=== PATIENT | male | born 1950 | race Native Hawaiian/Other Pacific Islander ===

== ENCOUNTER 2016-04-04 06:26 | Emergency (ER) | payer OTHER ==
[~2016-04-04] VITALS: Ht 165.1 cm; Wt 54.4 kg
[~2016-04-04 06:26] MED LIST: ACID CONTROL150 MG PO; ALBUTEROL0.083 % IN; ALBUTEROL2 MG/5 ML PO; ALPR0.5T24 PO; AMLO10TA PO; AMOX875T8 PO; ASA LO-DOSE81 MG PO; ASPIRIN LOW STR81 MG PO; BYSTOLIC5 MG PO; CEFD300C2 PO; CIPRODEX1 ML OT; CLARITIN10 MG PO; CLINDAMYCIN150 MG PO; FLUTMIS6 INH; FORTAMET500 MG OR; GABA100C2 PO; HYDACET7.5 PO; HYDR25TA60 PO; KETO10TA34 PO; LISI20TA11 PO; LORA10TA3 PO; LORTAB1 TA1 PO; LORTAB1 TAB PO; MEDROL DOSEPAK4 MG OR; MIRAPEX1 MG PO; NEXIUM40 M1 PO; NITR0.4S SL; PERIDEX0.12 % PO; PRAVACHOL20 MG PO; SIMV40TA57 PO; ZOFRAN8 MG OR
[2016-04-04 08:20] VITALS: BP 158/72; TEMP 98.1
== END 2016-04-04 08:21 | disposition home or self-care (01) ==
LOC: ED 06:26
DX: R10.2 Pelvic and perineal pain (principal); C19 Malignant neoplasm of rectosigmoid junction
CPT/HCPCS: 96372; 99282; J1885

== ENCOUNTER 2016-04-15 23:01 | Emergency (ER) | payer OTHER ==
[~2016-04-15] VITALS: Ht 165.1 cm; Wt 59.0 kg
[2016-04-16 00:14] VITALS: BP 135/91; TEMP 98.4
== END 2016-04-15 23:50 | disposition home or self-care (01) ==
LOC: ED 23:01
DX: M54.89 Other dorsalgia (principal); G89.29 Other chronic pain; C20 Malignant neoplasm of rectum
CPT/HCPCS: 96372; 99283; J1885

== ENCOUNTER 2016-05-04 16:04 | Emergency (ER) | payer OTHER ==
[~2016-05-04] VITALS: Ht 165.1 cm; Wt 54.4 kg
[2016-05-04 19:20] VITALS: BP 140/88; TEMP 97.6
== END 2016-05-04 19:20 | disposition home or self-care (01) ==
LOC: ED 16:04
DX: S00.83XA Contusion of other part of head, initial encounter (principal); S02.19XA Other fracture of base of skull, initial encounter for closed fracture; Y04.2XXA Assault by strike against or bumped into by another person, initial encounter; Y92.098 Other place in other non-institutional residence as the place of occurrence of the external cause
CPT/HCPCS: 99283

== ENCOUNTER 2017-04-09 16:22 | Emergency (ER) | payer OTHER ==
[~2017-04-09] VITALS: Ht 165.1 cm; Wt 59.0 kg
[2017-04-09 16:48] VITALS: BP 174/90; TEMP 97.6
== END 2017-04-09 16:50 | disposition home or self-care (01) ==
LOC: ED 16:22
DX: R10.32 Left lower quadrant pain (principal); R10.31 Right lower quadrant pain; C18.9 Malignant neoplasm of colon, unspecified
CPT/HCPCS: 96372; 99282; J1885

== ENCOUNTER 2018-12-11 11:11 | Emergency (ER) | payer OTHER ==
[~2018-12-11] VITALS: Ht 165.1 cm; Wt 54.4 kg
[2018-12-11 11:15] VITALS: TEMP 99
[2018-12-11] MEDS ORDERED: ASPIRIN 81 LOW81 MG PO (11:24)
[2018-12-11 11:42] LABS: PLATELET COUNT 259 K/uL (142-355)
[2018-12-11 11:51] LABS: POTASSIUM 2.9 mmol/L (3.6-5.2)
[2018-12-11 12:15] VITALS: BP 150/83
== END 2018-12-11 12:27 | disposition home or self-care (01) ==
LOC: ED 11:11
PROVIDERS: Emergency Medicine
DX: R10.84 Generalized abdominal pain (principal); M79.605 Pain in left leg; M79.604 Pain in right leg; M25.552 Pain in left hip; M25.551 Pain in right hip
CPT/HCPCS: 80053; 81000; 85027; 96372; 99283; J1885

== ENCOUNTER 2020-07-06 23:35 | Emergency (ER) | payer OTHER ==
[~2020-07-06] VITALS: Ht 165.1 cm; Wt 59.0 kg
[~2020-07-06 23:35] MED LIST changes: +ASPIRIN 81 LOW81 MG PO
[2020-07-07 01:17] VITALS: BP 149/92; TEMP 98.4
== END 2020-07-07 01:25 | disposition home or self-care (01) ==
LOC: ED 23:35
DX: S46.092A Other injury of muscle(s) and tendon(s) of the rotator cuff of left shoulder, initial encounter (principal); X50.0XXA Overexertion from strenuous movement or load, initial encounter; Y92.89 Other specified places as the place of occurrence of the external cause
CPT/HCPCS: 99282; J1885

== ENCOUNTER 2020-07-20 14:28 | Emergency (ER) | payer OTHER ==
[~2020-07-20] VITALS: Ht 165.1 cm; Wt 59.0 kg
[2020-07-20 14:38] VITALS: TEMP 97.8
[2020-07-20 15:22] LABS: PLATELET COUNT 292 K/uL (142-355)
[2020-07-20 15:30] LABS: POTASSIUM 3.6 mmol/L (3.6-5.2); SODIUM 143 mmol/L (136-145)
[2020-07-20 15:45] VITALS: BP 150/92
== END 2020-07-20 16:09 | disposition home or self-care (01) ==
LOC: ED 14:28
PROVIDERS: Family Medicine
DX: R07.89 Other chest pain (principal); R53.83 Other fatigue
CPT/HCPCS: 80053; 80307; 81000; 82550; 84484; 85027; 85610; 85730; 93005; 99283